=== PATIENT | female | born 1950 | race Caucasian/White ===

== ENCOUNTER → 2020-10-04 | Outpatient (CLI) | payer MEDICARE ==
[~2020-10-04] MED LIST: ALEN70 PO; Antivert25 MG PO; CHOL10002 PO; ERGO400 PO; FISH1000 PO; Norco 5-325 Ta1 EACH PO; PSYL5.85P PO; Voltaren100 GM TOP
[2020-10-06 17:24] LABS: CORONAVIRUS (COVID19) CSH-NRL Positive (Negative)
== END ==
LOC: LAB SHORT 17:56 → LAB 17:56
PROVIDERS: Chiropractor
DX: U07.1 COVID-19 (principal)
CPT/HCPCS: U0003

== ENCOUNTER 2020-11-09 10:05 | Emergency (ER) | payer MEDICARE ==
[~2020-11-09] VITALS: Ht 162.6 cm; Wt 97.1 kg
[~2020-11-09 10:05] MED LIST changes: -Voltaren100 GM TOP
[2020-11-09] MEDS ORDERED: Voltaren100 GM TOP (10:52)
== END 2020-11-09 11:05 | disposition home or self-care (01) ==
LOC: ER 10:05
DX: M70.52 Other bursitis of knee, left knee (principal)
CPT/HCPCS: 73562-LT; 99283-25

== ENCOUNTER → 2021-02-14 | Outpatient (CLI) | payer MEDICARE ==
[~2021-02-14] MED LIST changes: +LOSA25 PO; +VITAMIN D31000 UNI1; +Voltaren100 GM TOP
== END | disposition home or self-care (01) ==
LOC: PLD 12:23 → LAB SHORT 12:23
DX: L30.8 Other specified dermatitis (principal)
CPT/HCPCS: 88304; 88305; 88312

== ENCOUNTER → 2021-03-03 | Outpatient (CLI) | payer MEDICARE ==
[~2021-03-03] MED LIST changes: -LOSA25 PO; -VITAMIN D31000 UNI1
[2021-03-06 14:12] LABS: DOPAMINE, URINE 85 ug/L (Undefined)
[2021-03-06 17:07] LABS: METANEPHRINE, UR 67 ug/L (Undefined)
== END ==
LOC: LAB SHORT 22:30 → LAB 22:30 → LAB FUT 02-28 11:10
PROVIDERS: Internal Medicine
DX: R79.89 Other specified abnormal findings of blood chemistry (principal); I10 Essential (primary) hypertension
CPT/HCPCS: 81050; 82384

== ENCOUNTER 2021-03-11 09:57 | Day surgery (SDC) | payer MEDICARE ==
[~2021-03-11] VITALS: Ht 162.6 cm; Wt 92.4 kg
[2021-03-11] MEDS ORDERED: LOSA25 PO (10:39)
[2021-03-11] MEDS ORDERED: VITAMIN D31000 UNI1 (10:40)
--- NOTE | 2021-03-11 16:28 | NUR ---
03/11/21 1628 Ashley Cervantes PT. VERBALIZES HAVING SOME PRESSURE IN HER ABD. PT. ENC. TO PASS OUT AIR IF FELT SHE NEEDED TO, OTHERWISE THE AIR WOULD EVENTUALLY ABSORB.
== END 2021-03-11 12:10 | disposition home or self-care (01) ==
LOC: ORSCSDS 09:57
PROVIDERS: Internal Medicine Gastroenterology
PROC: 0DBK8ZX Excision of Ascending Colon, Via Natural or Artificial Opening Endoscopic, Diagnostic (ICD-10-PCS; principal; 2021-03-11 11:15)
DX: Z12.11 Encounter for screening for malignant neoplasm of colon (principal); D12.2 Benign neoplasm of ascending colon; K57.30 Diverticulosis of large intestine without perforation or abscess without bleeding; Z86.010 Personal history of colon polyps; Z80.0 Family history of malignant neoplasm of digestive organs
CPT/HCPCS: 88305; J2704; J7120

== ENCOUNTER → 2021-03-12 | Outpatient (CLI) | payer MEDICARE ==
[~2021-03-12] MED LIST changes: +LOSA25 PO; +VITAMIN D31000 UNI1
== END | disposition home or self-care (01) ==
LOC: LAB SHORT 08:22 → LAB 08:22
DX: D48.5 Neoplasm of uncertain behavior of skin (principal)
CPT/HCPCS: 88305